=== PATIENT | female | born 1980 | race Caucasian/White ===

== ENCOUNTER 2020-10-12 09:48 | Outpatient (CLI) | payer BC, SELFPAY ==
--- NOTE | 2020-10-12 10:01 | MM_ITS ---
WS: [id number] BILATERAL DIGITAL DIAGNOSTIC MAMMOGRAM MAMMOGRAPHY WITH CAD CLINICAL INFORMATION: BREAST LUMP RIGHT SIDE 6 OCLOCK COMPARISON: None. TECHNIQUE: Bilateral CC, MLO, and ML views. FINDINGS: The breasts are composed of heterogeneous fibroglandular density, which can limit the detection of sm all underlying mass lesions. Palpable marker inner right breast posterior depth inframammary fold No suspicious focal mass, asymmetry, calcifications, or architectural distortion. Ultrasound is pendi ng. ULTRASOUND BREAST RIGHT TECHNIQUE: Ultrasound right breast focused area of concern. CLINICAL INFORMATION: BREAST LUMP RIGHT SIDE 6 OCLOCK COMPARISON: None. FINDINGS: Ultrasound right breast at the 4:00 and 6:00 position. Superficial subcutaneous lesion likely sebaceo us cyst measuring 9 x 8 x 2 mm. No other suspicious cystic or solid lesions. No lesions to target for biopsy. MM/[id number] IMPRESSION: BI-RADS: 2-Benign FOLLOW UP: 1 Year Follow-up Recommend return to annual screening mammography.
== END 2020-10-12 09:49 | disposition home or self-care (01) ==
PROVIDERS: PCP Family Medicine; Visit Provider Family Medicine
DX: N63.15 Unspecified lump in the right breast, overlapping quadrants (principal)
CPT/HCPCS: 76642; 77066